=== PATIENT | male | born 1970 | race Caucasian/White ===

== ENCOUNTER 2020-07-23 16:52 | Observation (INO) ==
[2020-07-23 17:29] LABS: Basophils # 0.1 K/mcL (0.0-0.2); Basophils % 0.4 %; Eosinophils # 0.1 K/mcL (0.0-0.6); Eosinophils % 0.3 %; Hematocrit 49.3 % (37.5-50.1); Hemoglobin 16.2 g/dL (12.9-16.9); Immature Granulocytes % 0.4 % (0-4); Lymphocytes # 1.2 K/mcL (0.6-4.6); Lymphocytes % 6.3 %; Mean Corpuscular HGB Conc 32.9 g/dL (31.6-35.5); Mean Corpuscular Hemoglobin 28.9 pg (28.0-33.3); Mean Corpuscular Volume 87.9 fL (83.0-100.0); Mean Platelet Volume 10.8 fL (9.4-12.4); Monocytes # 0.8 K/mcL (0.0-1.3); Neutrophils # 16.7 K/mcL (1.6-8.9); Platelet Count 218 K/mcL (140-400); Red Blood Count 5.61 M/mcL (4.19-5.50); Red Cell Distribution Width 14.4 % (11.5-14.5); Segmented Neutrophils % 88.6 %; White Blood Count 18.8 K/mcL (4.3-11.1)
[2020-07-23 17:44] LABS: Alanine Aminotransferase 10 Units/L (7-52); Albumin 4.8 g/dL (3.5-5.7); Albumin/Globulin Ratio 1.4 (1.1-2.2); Alkaline Phosphatase 105 Units/L (34-104); Aspartate Amino Transferase 15 Units/L (13-39); BUN/Creatinine Ratio 13 (6-26); Bilirubin,Total 0.8 mg/dL (0.3-1.0); Blood Urea Nitrogen 11 mg/dL (6-20); Calcium 9.7 mg/dL (8.6-10.3); Carbon Dioxide 26 mEq/L (23-29); Chloride 100 mEq/L (98-107); Globulin 3.4 g/dL (2.4-3.5); Glucose 95 mg/dL (70-105); Osmolality,Calculated 277 (280-300); Potassium 3.8 mEq/L (3.5-5.1); Sodium 134 mEq/L (136-145); Total Protein 8.2 g/dL (6.4-8.9); eGFR For African Americans > 60 (> 60); eGFR For Non-African Americans > 60 (> 60)
[2020-07-23] MEDS ORDERED: 0.9 % Sodium Chloride 500 ML IVC ONE (18:04)
[2020-07-23 18:20] LABS: Bilirubin,Urine Negative (Negative); Blood,Urine Negative (Negative); Clarity,Urine Clear (Clear); Color,Urine Colorless (Yellow); Glucose,Urine (UA) Normal (Normal); Ketones,Urine Negative (Negative); Leukocyte Esterase,Urine Negative (Negative); Nitrite,Urine Negative (Negative); PH,Urine 6.5 pH Units (5.0-8.0); Protein,Urine Negative (Neg-Trace); Specific Gravity,Urine 1.007 (1.010-1.025); Urobilinogen,Urine Normal (Normal)
[2020-07-23 18:26] LABS: INR 1.1; Prothrombin Time 12.9 Seconds (9.4-12.1)
[2020-07-23 18:29] LABS: Activated Partial Thrombo Time 34.4 Seconds (26.0-36.0)
[2020-07-23] MEDS ORDERED: Ketorolac 15 MG/ML VIAL IVP PRN ×2 (19:10→23:00)
[2020-07-23] MEDS ORDERED: Ibuprofen 600 MG TABLET PO PRN (19:10)
[2020-07-23] MEDS ORDERED: *HR* OxyCODONE/APAP 5/325 TABLET PO PRN (19:10)
[2020-07-23] MEDS ORDERED: Ondansetron 4 MG/2 ML VIAL IVP PRN ×3 (19:10→23:00)
[2020-07-23] MEDS ORDERED: *HR* Propofol 200 MG/20 ML VIAL IVP ONE (19:14)
[2020-07-23] MEDS ORDERED: *HR* FentaNYL (PF) 100 MCG/2 ML VIAL ONE ×2 (19:14→21:01)
[2020-07-23] MEDS ORDERED: 0.9 % Sodium Chloride 1,000 ML IVC SCH (19:15)
[2020-07-23] MEDS ORDERED: *HR* Succinylcholine 200 MG/10 ML VIAL IVP ONE (19:17)
[2020-07-23] MEDS ORDERED: *HR* Rocuronium Bromide 50 MG/5 ML VIAL ONE (19:17)
[2020-07-23] MEDS ORDERED: Lidocaine -MPF 2% 2 ML VIAL ONE (19:17)
[2020-07-23] MEDS ORDERED: Ondansetron 4 MG/2 ML VIAL ONE (19:17)
[2020-07-23] MEDS ORDERED: Promethazine 6.25 MG in Water for inj. (sterile) 20 ML IVPB PRN ×2 (19:34→23:00)
[2020-07-23] MEDS ORDERED: *HR* OxyCODONE Immed Rel 5 MG TABLET PO PRN ×2 (19:34→23:00)
[2020-07-23] MEDS ORDERED: *HR* HYDROmorphone PF 0.5 MG/0.5 ML SYRINGE IVP PRN ×2 (19:34→23:00)
[2020-07-23] MEDS ORDERED: Piperacillin/Tazobactam 3.375 GM in 0.9 % Sodium Chloride Mini Bag 100 ML IVPB SCH (20:00)
[2020-07-23] MEDS ORDERED: Ketorolac 30 MG/ML VIAL ONE (21:08)
[2020-07-23] MEDS ORDERED: Ringers Solution, Lactated 1,000 ML ONE (22:02)
[2020-07-23] MEDS: 0.9 % Sodium Chloride 1,000 ML IVC SCH (23:18)
[2020-07-24] MEDS: Piperacillin/Tazobactam 3.375 GM in 0.9 % Sodium Chloride Mini Bag 100 ML IVPB SCH ×4 (00:27→23:48)
[2020-07-24] MEDS: Ibuprofen 600 MG TABLET PO PRN ×3 (02:58→23:49)
[2020-07-24] MEDS ORDERED: Piperacillin/Tazobactam 3.375 GM in 0.9 % Sodium Chloride Mini Bag 100 ML IVPB SCH (04:00)
[2020-07-24] MEDS: 0.9 % Sodium Chloride 1,000 ML IVC SCH ×2 (09:18→18:32)
[2020-07-24] MEDS: *HR* OxyCODONE/APAP 5/325 TABLET PO PRN (17:52)
[2020-07-25] MEDS: 0.9 % Sodium Chloride 1,000 ML IVC SCH ×2 (04:51→14:32)
[2020-07-25] MEDS: *HR* OxyCODONE/APAP 5/325 TABLET PO PRN ×2 (05:04→12:44)
[2020-07-25] MEDS: Piperacillin/Tazobactam 3.375 GM in 0.9 % Sodium Chloride Mini Bag 100 ML IVPB SCH ×2 (09:39→17:05)
[2020-07-25] MEDS ORDERED: *HR* Metoprolol 5 MG/5 ML VIAL IVP ONE (13:56)
[2020-07-25] MEDS ORDERED: *HR* Metoprolol 5 MG/5 ML VIAL IVP PRN (13:57)
[2020-07-25] MEDS ORDERED: Albuterol 2.5 MG/3 ML NEBULIZER IH PRN (13:59)
[2020-07-25] MEDS: Ondansetron 4 MG/2 ML VIAL IVP PRN (20:53)
[2020-07-26] MEDS ORDERED: Ondansetron 4 MG/2 ML VIAL IVP ONE (01:18)
[2020-07-26] MEDS: Piperacillin/Tazobactam 3.375 GM in 0.9 % Sodium Chloride Mini Bag 100 ML IVPB SCH ×3 (01:53→16:09)
[2020-07-26] MEDS: 0.9 % Sodium Chloride 1,000 ML IVC SCH ×3 (01:54→21:40)
[2020-07-26 04:34] LABS: Basophils % 0.2 %; Eosinophils % 0.1 %; Hematocrit 46.2 % (37.5-50.1); Hemoglobin 14.8 g/dL (12.9-16.9); Immature Granulocytes % 0.5 % (0-4); Lymphocytes # 0.7 K/mcL (0.6-4.6); Lymphocytes % 3.8 %; Mean Corpuscular Hemoglobin 28.2 pg (28.0-33.3); Mean Corpuscular Volume 88.2 fL (83.0-100.0); Mean Platelet Volume 10.9 fL (9.4-12.4); Monocytes # 0.7 K/mcL (0.0-1.3); Monocytes % 3.7 %; Platelet Count 204 K/mcL (140-400); Red Blood Count 5.24 M/mcL (4.19-5.50); Red Cell Distribution Width 14.6 % (11.5-14.5); Segmented Neutrophils % 91.7 %; White Blood Count 18.5 K/mcL (4.3-11.1)
[2020-07-26] MEDS: *HR* Metoprolol 5 MG/5 ML VIAL IVP SCH ×3 (05:08→17:49)
[2020-07-26 05:15] LABS: BUN/Creatinine Ratio 19 (6-26); Blood Urea Nitrogen 14 mg/dL (6-20); Calcium 8.6 mg/dL (8.6-10.3); Carbon Dioxide 23 mEq/L (23-29); Chloride 103 mEq/L (98-107); Glucose 115 mg/dL (70-105); Osmolality,Calculated 285 (280-300); Potassium 3.7 mEq/L (3.5-5.1); Sodium 137 mEq/L (136-145); eGFR For African Americans > 60 (> 60); eGFR For Non-African Americans > 60 (> 60)
[2020-07-26] MEDS ORDERED: Furosemide 20 MG/2 ML VIAL IVP ONE (08:09)
[2020-07-26 08:53] LABS: ABG Base Excess 2 mEq/L (-2 to 3); ABG HCO3 26 mEq/L (21-27); ABG Oxygen Saturation 93 % (95-98); ABG PCO2 38 mmHg (35-45); ABG PH 7.44 pH Units (7.32-7.45); ABG PO2 63 mmHg (85-104); ABG TCO2 27 mEq/L (20-26)
[2020-07-26] MEDS ORDERED: Perflutren Lipid Microsphere 1.3 ML in 0.9 % Sodium Chloride 8.7 ML IVP PRN (10:02)
[2020-07-26] MEDS: Ondansetron 4 MG/2 ML VIAL IVP PRN ×2 (12:59→19:38)
[2020-07-26] MEDS: *HR* OxyCODONE/APAP 5/325 TABLET PO PRN (19:42)
[2020-07-26] MEDS ORDERED: *HR* Promethazine 25 MG/ML VIAL IM PRN (22:30)
[2020-07-27] MEDS ORDERED: *HR* LORazepam 2 MG/ML VIAL IVP ONE ×2 (00:04→00:43)
[2020-07-27] MEDS: *HR* OxyCODONE/APAP 5/325 TABLET PO PRN (00:20)
[2020-07-27] MEDS: Piperacillin/Tazobactam 3.375 GM in 0.9 % Sodium Chloride Mini Bag 100 ML IVPB SCH ×2 (01:03→08:25)
[2020-07-27] MEDS: *HR* Metoprolol 5 MG/5 ML VIAL IVP SCH ×3 (01:03→11:47)
[2020-07-27 11:07] VITALS: BP 157/89
[2020-07-27] MEDS ORDERED: Ipratropium/Albuterol Neb 3 ML IH SCH (12:48)
[2020-07-27 13:15] LABS: Adenovirus Not Detected (Not Detect); Bordetella Pertussis Not Detected (Not Detect); Chlamydophila pneumoniae Not Detected (Not Detect); Coronavirus 229E Not Detected (Not Detect); Coronavirus HKU1 Not Detected (Not Detect); Coronavirus NL63 Not Detected (Not Detect); Coronavirus OC43 Not Detected (Not Detect); Human Metapneumovirus Not Detected (Not Detect); Human Rhinovirus/Enterovirus Not Detected (Not Detect); Influenza A Subtype 2009 H1 Not Detected (Not Detect); Influenza B Not Detected (Not Detect); Mycoplasma pneumoniae Not Detected (Not Detect); Parainfluenza Virus 1 Not Detected (Not Detect); Parainfluenza Virus 2 Not Detected (Not Detect); Parainfluenza Virus 3 Not Detected (Not Detect); Parainfluenza Virus 4 Not Detected (Not Detect); Respiratory Syncytial Virus Not Detected (Not Detect); SARS-CoV-2 Not Detected (Not Detect)
== END 2020-07-27 15:01 | disposition left against medical advice (07) ==
LOC: 3ANU 16:52 → EMEROOARM 16:52 → UNDODISOB 19:50 → 3ANU 19:50
PROVIDERS: ADMIT Surgery; ATTEND Surgery